=== PATIENT | male | born 1960 ===

== ENCOUNTER 2022-09-18 08:37 | Day surgery (SDC) | payer SELFPAY ==
[~2022-09-18 08:37] MED LIST: Metoclopramide 10 MG/2 ML SDV IV PRN; Sodium Chloride 0.9% 1,000 ML IV SCH
[2022-09-18] MEDS ORDERED: Metoclopramide 10 MG/2 ML SDV IVPUSH PRN (09:23)
[2022-09-18] MEDS ORDERED: Sodium Chloride 0.9% 1,000 ML IV SCH (09:30)
== END 2022-09-18 11:50 | disposition home or self-care (01) ==
LOC: LB.SDS 08:37
PROVIDERS: ATTEND Surgery
DX: Z12.11 Encounter for screening for malignant neoplasm of colon (principal); K57.30 Diverticulosis of large intestine without perforation or abscess without bleeding
CPT/HCPCS: J7030